=== PATIENT | male | born 1930 | race Caucasian/White ===

== ENCOUNTER 2017-07-05 11:22 | Inpatient (IN) | payer OTHER, MEDICARE ==
[~2017-07-05] VITALS: Ht 172.7 cm; Wt 64.4 kg
--- NOTE | ~2017-07-05 | P ---
[facility] [address] PROCEDURE REPORT Name: EVELIO LOCKE Room #: 438-P [facility] IN M.R.#: [id number] Admission: 07/05/17 Attend Phys: Edgardo Newell MD Discharge: Date of : 31 Report #: [id number] THIS REPORT FOR: //name// CC: Edgardo Hughese Regis DATE OF SERVICE: 07/08/2017 PROCEDURE PERFORMED: Upper endoscopy with biopsies. HISTORY OF PRESENT ILLNESS: The patient is an 86-year-old male with a history of abdominal pain, primarily mid epigastric and periumbilical as well as weight loss. A CT scan of the abdomen and pelvis was essentially normal. He does have a mildly elevated lipase, but CT shows normal appearing pancreas. No previous history of pancreatitis. Plan is for upper endoscopy. DESCRIPTION OF PROCEDURE: The risks and benefits of the procedure were explained to the patient, those risks including but not limited to bleeding, perforation and the risk of sedation. He understood these risks and gave informed consent. Sedation was given using propofol per anesthesia. Next, using a standard [employer] upper endoscope, the scope was placed in the patient's mouth and advanced under direct vision through the esophagus, stomach and into the second portion of the duodenum. The esophagus was normal throughout. The GE junction was normal. There was a diffuse moderate gastritis throughout the gastric body and antrum with erythema. Biopsies were obtained to rule out H. pylori. A gastric polyp, 4 mm in size, was also noted. This was removed with cold forceps. The duodenal bulb, first and second portion were all normal. Biopsies were also obtained to rule out the possibility of celiac disease. The scope was then withdrawn and the procedure terminated. The patient tolerated the procedure well. IMPRESSION: 1. Diffuse moderate gastritis. 2. Small gastric polyp. 3. Otherwise, normal upper endoscopy. RECOMMENDATIONS: 1. Await biopsy results. 2. Continue PPI therapy. 3. We will add Carafate at this time. 4. If continued pain and weight loss, would consider ultrasound with mesenteric Dopplers. [facility] [address] [place] [address] PROCEDURE REPORT Name: EVELIO LOCKE EMILIANA Room #: 438-P [facility] IN M.R.#: [id number] Admission: 07/05/17 Attend Phys: Edgardo Newell MD Discharge: Date of : 31 Report #: [id number] Thank you for allowing me to participate in his care. <ELECTRONICALLY SIGNED> By: Enrike Allen MD 07/08/17 1705 1243 1312 Enrike Allen MD /nt
--- NOTE | ~2017-07-05 | HC ---
[facility] [place] [address] CONSULTATION Name: EVELIO LOCKE Room #: 438-P [facility] IN ..#: [id number] Admission: 07/05/17 Attend Phys: Edgardo Newell MD Discharge: 07/09/17 Date of : 31 Report #: [id number] THIS REPORT FOR: //name// CC: Edgardo Stacy DATE OF SERVICE: 07/09/2017 HISTORY OF PRESENT ILLNESS: The patient is an 86-year-old white male with history of hypertension, hyperlipidemia, depression, dizziness, admitted with abdominal pain. He was diagnosed with diffuse moderate gastritis per EGD along with a small gastric polyp. He was also diagnosed with a urinary tract infection. He was noted to have cognitive issues with a negative CT of the head and has been diagnosed with metabolic encephalopathy. He was noted to have a slow progression of his cognitive deficits, thought to be worse in the hospital. He also has been seen by Psychiatry with history of depressive symptoms. His had approximately 2 years ago. He was diagnosed with major depressive disorder and was started on Remeron. He has had significant functional mobility and ADL deficits with cognitive concerns and definite decreased balance noted during therapies. We are seeing him in rehabilitation medicine consultation. PAST MEDICAL HISTORY: Includes hypertension, hyperlipidemia, cholecystectomy, 2 back surgeries, appendectomy. PAST SURGICAL HISTORY: As noted above. HABITS: No history of tobacco or alcohol abuse. MEDICATIONS: Please see the full medication listing. ALLERGIES: No known drug allergies. SOCIAL HISTORY: Lives in a house alone, did not utilize gait aids. There are 3 steps in. He has an older son that is involved as well as a sister of his and there is a friend from [place]. He has attentive neighbors as well. REVIEW OF SYSTEMS: Did not offer any current complaints of chest pain, shortness of breath or abdominal discomfort. No focal extremity pain complaints. PHYSICAL EXAMINATION: GENERAL: An 86-year-old white male in no obvious distress. VITAL SIGNS: Last recorded temperature 98.7, pulse 84, respirations 20, blood pressure 156/88. The patient is alert. He is pleasant. HEENT: Appeared to be benign. NEUROLOGIC: Cranial nerves are grossly intact. Facies are symmetric. He has [address] [address] CONSULTATION Name: EVELIO LOCKE Room #: 438-P [facility] IN .R.#: [id number] Admission: 07/05/17 Attend Phys: Edgardo Newell MD Discharge: 07/09/17 Date of : 31 Report #: [id number] functional range of motion of both upper extremities. Strength is a grade 4/5. DTRs are trace to 1. In his lower extremities, there is no focal calf swelling. Functional range of motion with strength grade 4/5 to 4-/5. DTRs are trace to 1. He was contact guard with sit to stand and ambulated 250 feet with a front-wheeled walker, but he has decreased safety and he had 1 loss of balance. He required increased time for gait, had some unsteadiness. He is mod assist for lower extremity dressing and tends to be impulsive. ASSESSMENT: An 86-year-old white male with the following problem list: 1. Metabolic encephalopathy. 2. Depressive disorder. 3. Abdominal pain, acute on chronic with noted diffuse moderate gastritis. 4. Urinary tract infection and has been on IV Rocephin. 5. Hypertension. 6. Deep venous thrombosis prophylaxis. PLAN: 1. The patient is a candidate for an acute in-hospital inpatient rehabilitation stay. From a preadmission screening perspective, please see the patient's above noted prior level of function. 2. Expected level of improvement would be for the patient to become modified independent at least at the walker level with the length of stay probably at least 7-10 days and likely longer. 3. Evaluation of the patient's risk for clinical complications. He does have the above noted medical comorbidities. 4. Condition that caused the need for rehabilitation would be the metabolic encephalopathy. 5. Treatments needed would include PT, OT and speech 1 hour per day each five days a week throughout the duration of the acute inpatient rehabilitation stay. 6. Anticipated discharge destination would be back to the home setting. 7. Anticipated post-discharge treatments would include home healthcare, most likely. 8. The patient meets diagnostic criteria for an acute in-hospital inpatient rehabilitation stay. He meets medical necessity criteria and we would have the automotive service consultant physicians continue to follow while he is on the rehab [place]. He meets the tolerance criteria for an acute in-hospital inpatient rehabilitation stay and has an appropriate discharge goal back to the home setting. By: 1413 1835 Av Avalos MD /
--- NOTE | ~2017-07-05 | HC ---
[facility] [place] [address] CONSULTATION Name: EVELIO LOCKE Room #: 438-P [facility] IN ..#: [id number] Admission: 07/05/17 Attend Phys: Edgardo Newell MD Discharge: Date of : 31 Report #: [id number] THIS REPORT FOR: //name// CC: Edgardo Hughese Regis DATE OF CONSULTATION: 07/06/2017. REQUESTING ATTENDING PHYSICIAN: Edgardo Newell M.D. REASON FOR CONSULTATION: Nioai-fi-lnfihhm abdominal pain and weight loss. HISTORY OF PRESENT ILLNESS: An 86-year-old male who is not a very good historian. Some of his memory of issues is not great. He reports having abdominal pain that is in the epigastrium to hypogastrium for approximately 3 months. He denies any evaluation of this until this hospitalization, although he has seen his primary care provider several times. Again, history is a bit unclear here. He does report a colonoscopy about 2 years ago and was told it was normal. He does not recall who did that. He notes that his pain seems to be better when he eats, although he also notes he has a poor appetite and with that he has lost some weight. He eats frozen dinners on a routine basis. PAST MEDICAL HISTORY: Pertinent for hypertension. CURRENT MEDICATIONS: As an outpatient included omeprazole, calcium, hydrochlorothiazide, lisinopril, Xalatan eyedrops, sertraline, levothyroxine, simvastatin, Lindsay and p.r.n. ibuprofen. PAST SURGICAL HISTORY: Includes tonsillectomy, cholecystectomy, 2 back surgeries, and appendectomy. FAMILY AND SOCIAL HISTORY: Noncontributory. MEDICATIONS: His current medications while in the hospital, atorvastatin, Rocephin, hydrochlorothiazide, hydrocodone, levothyroxine, lisinopril, morphine p.r.n., Norvasc, pantoprazole 40 mg p.o. daily, MiraLax p.r.n., sertraline, Zofran p.r.n. ALLERGIES: There are no known drug allergies. FAMILY AND SOCIAL HISTORY: Noncontributory. PHYSICAL EXAMINATION: VITAL SIGNS: Since admission, he has been afebrile. Most recent blood pressure is 149/70 with a pulse of 62. GENERAL: Well-developed, well-nourished elderly male. He is alert. He is oriented. [address] [address] CONSULTATION Name: EVELIO LOCKE Room #: 438-P [facility] IN [facility]#: [id number] Admission: 07/05/17 Attend Phys: Edgardo Newell MD Discharge: Date of : 31 Report #: [id number] HEENT: Nonicteric. SKIN: Normal. LUNGS: Clear. CARDIOVASCULAR: Regular rhythm. ABDOMEN: Soft. Bowel sounds are present, normoactive. No hepatosplenomegaly. There are no masses palpated. EXTREMITIES: There is no tenderness on my examination. REVIEWED LABORATORY DATA: Electrolytes are normal. AST is 38. Lipase was 440, ALT is 27. Alkaline phosphatase is normal. Total bilirubin is normal. Albumin is normal. White cell count is normal, hemoglobin is 11.9, platelet count is 219,000. The patient had a CT of the abdomen and pelvis done which basically was normal. There is no evidence of pancreatitis. IMPRESSION: Chronic abdominal pain that tends to improve with eating an 86-year-old male. I do not think clinically this is pancreatitis. CT does not reflect this either, perhaps he has some acid peptic disease. Recommend continue empiric proton pump inhibitor presently. PLAN: EGD on 08/08/[address] Allen if it is wish for him to be discharged. This could be done as an outpatient as well. <ELECTRONICALLY SIGNED> By: Brady Denton MD 07/06/17 0727 0616 0650 Brady Denton MD /nt
--- NOTE | ~2017-07-05 | S ---
[facility] [place] [address] SURGICAL PATH RPT PROCEDURE Name: ARIAN LOCKE Room #: 438-P ADM IN M.R.#: [id number] Admission: 07/05/17 Date of : 31 Discharge: Report #: [id number] Path Case #: [id number] PATHOLOGY REPORT COLLECTION DATE: 07/08/2017 RECEIVED DATE: 07/08/2017 SUBMITTING PHYS: Dr. Enrike Allen OTHER PHYS: Dr. Edgardo Stacy SPECIMEN(S) RECEIVED: A.Duodenum B.Gastritis C.Gastric polyp * * * * * * * * * * * * FINAL DIAGNOSIS: A. Small bowel, duodenum/rule out sprue, endoscopic biopsy: - No diagnostic abnormalities present. B. Gastric mucosa, gastritis rule out H. pylori, endoscopic biopsy: - Moderate reactive gastropathy associated with intestinal metaplasia as well as small bowel-type architecture. (please see comment) - Negative for atrophy or dysplasia. - Negative for Helicobacter pylori. C. Polyp, gastric polyp, endoscopic biopsy: - Compatible with an inflamed hyperplastic polyp. - Negative for dysplasia. COMMENT: B: Examination shows small bowel-type architecture with villi, as well as intestinal metaplasia in addition to fundic-type mucosa. These changes might represent intestinal metaplasia of the gastric mucosa or the mucosa at "pyloric outlet." Please correlate with endoscopic findings. Helicobacter pylori immunohistochemical stain performed on block B1-negative (IUV:mgr; 07/09/2017) PATHOLOGIST: Keena Ha M.D. REPORT ELECTRONICALLY SIGNED BY: Keena Ha M.D. DATE/TIME: 07/09/2017 15:12 * * * * * * * * * * * * GROSS PATHOLOGY: A. Received in formalin labeled "Arian Locke, duodenum r/o sprue," are four segments of hobbs soft tissue measuring 0.8 x 0.5 x [facility] [address] [place] [address] SURGICAL PATH RPT PROCEDURE Name: ARIAN LOCKE Room #: 438-[facility] IN ..#: [id number] Admission: 07/05/17 Date of : 31 Discharge: Report #: [id number] Path Case #: [id number] 0.3 cm in aggregate dimensions and ranging from 0.2 to 0.3 cm in maximum dimension. The specimen is submitted entirely in cassette A1. B. Received in formalin labeled "Arian Locke, gastritis,r/o H. pylori " are two segments of hobbs soft tissue measuring 0.5 x 0.2 x 0.3 cm in aggregate dimensions and ranging from 0.2 to 0.3 cm in maximum dimension. The specimen is submitted entirely in cassette B1. C. Received in formalin labeled "Arian Locke, gastric polyp," are two segments of hobbs soft tissue measuring 0.6 x 0.2 x 0.2 cm in aggregate dimensions and ranging from 0.2 to 0.4 cm in maximum dimension. The specimen is submitted entirely in cassette C1. (TSD; 07/08/2017) CLINICAL HISTORY: Pre-OP DX: Abdominal pain, weight loss Post-OP DX: Gastritis INITIAL CPT CODE(S): A; 76370 B; 22944, 33621 C; 23638 Professional services performed by [facility] at [facility] [address], [place] [address] Technical services performed by [facility] at [address] [place] [address], [address], [place] [address]. [facility] [place] [address] PHONE: [phone] DIRECTOR: Delfino Zhang M.D. * * * END OF REPORT * * *
--- NOTE | ~2017-07-05 | EKG ---
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
[~2017-07-05 11:22] MED LIST: ALLEGRA ALLERG180 MG PO; CALCIUM 500 +1 EAC5 PO; DAILY MULTIPLE1 EACH PO; HYDROCHLOROTHIA25 M2 PO; IBUPROFEN 200200 M1 PO; LEVOTHYROXINE 0.1 MG PO; NORVASC5 MG PO; PRILOSEC 20 MG20 MG PO; XALATAN2.5 ML OPHTHALMIC; ZESTRIL40 MG PO; ZOCOR20 MG PO; ZOLOFT 50 MG TA50 M1 PO; ZOLOFT50 MG PO
[2017-07-05 11:41] VITALS: BP 178/89
[2017-07-05 12:12] LABS: ABSOLUTE NEUTROPHILS 5.8 thou/uL (1.4-8.2); BASOPHILS 0.3 % (0.0-2.0); EOSINOPHILS 0.1 % (0.0-3.0); HEMATOCRIT 37.1 % (42.0-52.0); HEMOGLOBIN 13.1 gm/dL (14.0-18.0); LYMPHOCYTES 13.2 % (24.0-44.0); MCH 31.5 pg (26.0-34.0); MCHC 35.3 g/dL (28.0-37.0); MCV 89.2 fL (80.0-100.0); MONOCYTES 8.1 % (1.0-8.0); PLATELET COUNT 245 thou/uL (150-400); POLYS 78.3 % (36.0-66.0); RBC 4.16 mil/uL (4.50-6.00); RDW 13.2 % (10.5-14.5); WBC 7.4 thou/uL (4.0-11.0)
[2017-07-05 12:14] LABS: MANUAL DIFF NO
[2017-07-05 12:14] LABS: URINE BILIRUBIN NEGATIVE (Negative); URINE BLOOD NEGATIVE (Negative); URINE COLOR YELLOW; URINE GLUCOSE-RANDOM* NEGATIVE (Negative); URINE KETONES NEGATIVE (Negative); URINE LEUKOCYTES-REFLEX TRACE (Negative); URINE PROTEIN (DIPSTICK) NEGATIVE (Negative); URINE SPECIFIC GRAVITY 1.015 (1.003-1.035); URINE UROBILINOGEN 0.2 E.U./dl (0.2-1.0)
[2017-07-05 12:15] LABS: ANION GAP 7 mmol/L (7-16); BUN 22 mg/dL (7-18); CALCIUM 9.3 mg/dL (8.5-10.1); CHLORIDE 102 mmol/L (98-107); CO2 28 mmol/L (21-32); CREATININE 1.3 mg/dL (0.7-1.3); GLUCOSE 130 mg/dL (74-106); POTASSIUM 4.1 mmol/L (3.5-5.1); SODIUM 137 mmol/L (136-145)
[2017-07-05 12:24] LABS: MAGNESIUM 1.8 mg/dL (1.8-2.4); TROPONIN-I < 0.04 ng/mL (<0.04-0.07)
[2017-07-05 13:52] VITALS: BP 183/87
[2017-07-05 14:27] VITALS: BP 175/82
[2017-07-05 14:35] VITALS: BP 182/91
[2017-07-05 19:48] VITALS: BP 176/73
[2017-07-06 03:11] VITALS: BP 149/70
[2017-07-06 03:46] LABS: HEMOGLOBIN 11.9 gm/dL (14.0-18.0); MCH 31.2 pg (26.0-34.0); RBC 3.81 mil/uL (4.50-6.00); WBC 7.3 thou/uL (4.0-11.0)
[2017-07-06 03:56] LABS: CALCIUM 8.8 mg/dL (8.5-10.1); CREATININE 1.2 mg/dL (0.7-1.3); POTASSIUM 3.8 mmol/L (3.5-5.1)
[2017-07-06 08:53] VITALS: BP 141/56
[2017-07-06 15:37] VITALS: BP 158/76
[2017-07-06 19:40] VITALS: BP 171/79
[2017-07-07 03:35] VITALS: BP 149/65
[2017-07-07 04:56] LABS: HEMOGLOBIN 12.1 gm/dL (14.0-18.0); MCH 31.1 pg (26.0-34.0); MCHC 34.7 g/dL (28.0-37.0); MCV 89.6 fL (80.0-100.0); RBC 3.9 mil/uL (4.50-6.00); RDW 13.1 % (10.5-14.5); WBC 8.4 thou/uL (4.0-11.0)
[2017-07-07 05:14] LABS: CALCIUM 8.9 mg/dL (8.5-10.1); CREATININE 1.2 mg/dL (0.7-1.3); POTASSIUM 3.7 mmol/L (3.5-5.1)
[2017-07-07 08:26] VITALS: BP 144/61
[2017-07-07 16:23] VITALS: BP 164/77
[2017-07-07 19:40] VITALS: BP 131/68
[2017-07-08 04:50] VITALS: BP 160/70
[2017-07-08 08:00] VITALS: BP 175/84
[2017-07-08 13:48] VITALS: BP 130/74
[2017-07-08 16:00] VITALS: BP 185/99
[2017-07-08 20:14] VITALS: BP 168/96
[2017-07-09 04:25] VITALS: BP 156/88
[2017-07-09 05:35] LABS: HEMATOCRIT 35.7 % (42.0-52.0); HEMOGLOBIN 12.2 gm/dL (14.0-18.0); MCH 30.8 pg (26.0-34.0); MCHC 34.2 g/dL (28.0-37.0); RBC 3.96 mil/uL (4.50-6.00); RDW 13.3 % (10.5-14.5); WBC 7.4 thou/uL (4.0-11.0)
[2017-07-09 05:45] LABS: CALCIUM 9.1 mg/dL (8.5-10.1); CREATININE 1.5 mg/dL (0.7-1.3); POTASSIUM 3.8 mmol/L (3.5-5.1)
[2017-07-09] MEDS ORDERED: CARAFATE 1 GM TA1 G1 PO (15:57)
[2017-07-09] MEDS ORDERED: REMERON15 MG PO (15:57)
[2017-07-09] MEDS ORDERED: MIRALAX17 GM PO (15:57)
[2017-07-09 16:00] VITALS: BP 118/57
== END 2017-07-09 18:15 | DRG 689 ==
LOC: ER 11:22 → 4S 13:35 → EROBS 13:35 → 4S 14:23
PROVIDERS: Emergency Medicine; Hospitalist
PROC: 0DB68ZX Excision of Stomach, Via Natural or Artificial Opening Endoscopic, Diagnostic (ICD-10-PCS; principal; 2017-07-08)
PROC: 0DB98ZX Excision of Duodenum, Via Natural or Artificial Opening Endoscopic, Diagnostic (ICD-10-PCS; principal; 2017-07-08)
DX: N39.0 Urinary tract infection, site not specified (principal); G93.41 Metabolic encephalopathy; K85.90 Acute pancreatitis without necrosis or infection, unspecified; I10 Essential (primary) hypertension; E78.5 Hyperlipidemia, unspecified; F32.9 Major depressive disorder, single episode, unspecified; N28.9 Disorder of kidney and ureter, unspecified; Z60.2 Problems related to living alone; K29.70 Gastritis, unspecified, without bleeding; K31.7 Polyp of stomach and duodenum; K59.00 Constipation, unspecified; Z90.49 Acquired absence of other specified parts of digestive tract; Z79.899 Other long term (current) drug therapy
CPT/HCPCS: 10100; 62110; 62900; 70005

== ENCOUNTER 2017-07-09 15:30 | Inpatient (IN) | payer OTHER, MEDICARE ==
[~2017-07-09] VITALS: Ht 172.7 cm; Wt 64.9 kg
--- NOTE | ~2017-07-09 | H ---
[facility] [place] [address] HISTORY AND PHYSICAL Name: EVELIO LOCKE Room #: 503-P ADM IN M.R.#: [id number] Admission: 07/09/17 Attend Phys: Av Avalos MD Discharge: Date of : 31 Report #: [id number] THIS REPORT FOR: //name// CC: Av Stacy DATE OF SERVICE: 07/09/2017 HISTORY AND PHYSICAL/POST-ADMISSION PHYSICIAN EVALUATION HISTORY OF PRESENT ILLNESS: The patient is an 86-year-old white male with a prior history of hypertension, hyperlipidemia, depression, dizziness who is originally admitted to [facility] with abdominal pain. He was diagnosed with diffuse moderate gastritis per EGD along with a small gastric polyp. He was also diagnosed with a urinary tract infection. He was noted to have cognitive issues with a negative CT of the head and was diagnosed with a metabolic encephalopathy. He was noted to have a slow progression of his cognitive deficits, thought to be worse in the hospital. He was seen by Psychiatry with his history of depressive symptoms. His had approximately 2 years ago. He was diagnosed with major depressive disorder and was started on Remeron. He was noted to have significant functional mobility and ADL deficits and cognitive concerns along with decreased balance. He was admitted for acute in-hospital inpatient rehabilitation. PAST MEDICAL HISTORY: Includes hypertension, hyperlipidemia, cholecystectomy, 2 back surgeries, appendectomy. PAST SURGICAL HISTORY: As noted above. HABITS: No history of tobacco or alcohol abuse. MEDICATIONS: Please see the full medication listing as noted. These medications were individually reconciled upon admission to the acute inpatient rehabilitation call[place]. They include supplements [id number], etc. ALLERGIES: No known drug allergies. SOCIAL HISTORY: Lives in a house alone, did not utilize gait aids. There are 3 steps in. He has an older son that is involved as well as a sister of his and there is a friend from [place], [place]. He has attentive neighbors as well. REVIEW OF SYSTEMS: No current complaints of chest pain, shortness of breath, abdominal discomfort. No focal extremity pain complaints. PHYSICAL EXAMINATION: [facility] [address] [place] [address] HISTORY AND PHYSICAL Name: EVELIO LOCKE Room #: 503-P [facility] IN M.R.#: [id number] Admission: 07/09/17 Attend Phys: Av Avalos MD Discharge: Date of : 31 Report #: [id number] GENERAL: An 86-year-old white male in no obvious distress. The patient is sleepy, but will arouse. VITAL SIGNS: Last recorded temperature is 98.6, pulse 60, respirations 20, blood pressure 162/86. HEENT: Appeared to be benign. CHEST: Sounded clear to auscultation. CARDIOVASCULAR: Regular rate and rhythm. ABDOMEN: Bowel sounds positive, nontender. GENITOURINARY AND RECTAL: Deferred. EXTREMITIES: He has functional range of motion of both upper extremities with strength grade 4/5. DTRs are trace to 1. In his lower extremities, there is no focal calf swelling. Functional range of motion with strength grade 4 to 4-/5. DTRs are trace to 1. He has been contact guard with sit to stand and has some decreased balance, decreased safety, some unsteadiness. He is needing assistance for extremity dressing. ASSESSMENT: An 86-year-old white male with the following problem list: 1. Metabolic encephalopathy. 2. Depressive disorder. 3. Abdominal pain, acute on chronic, with noted moderate diffuse gastritis. 4. Urinary tract infection for which he has been on IV Rocephin. 5. Hypertension. 6. Deep venous thrombosis prophylaxis. PLAN: The patient is admitted for acute in-hospital inpatient rehabilitation. From a post-admission physician evaluation perspective, there are no relevant changes since the preadmission screening. Please see the above review of prior and current medical and functional conditions and comorbidities. Please see the patient's previous and current functional status. As far as risk of complications, he does have the above-noted comorbidities. Initial plan of care involves the interdisciplinary acute inpatient rehabilitation program with the goal of maximizing his functional independence, so that he can hopefully return back to his prior living situation. Prognosis is reasonably good with estimated length of stay of at least 7-10 days and potentially longer. Potential barriers would include his multiple medical comorbidities and decreased functional status. By: 0930 0951 Av Avalos MD /
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
--- NOTE | ~2017-07-09 | HC ---
[facility] [place] [address] CONSULTATION Name: EVELIO LOCKE Room #: 503-P ADM IN M.R.#: [id number] Admission: 07/09/17 Attend Phys: Av Avalos MD Discharge: Date of : 31 Report #: [id number] THIS REPORT FOR: //name// CC: Av Stacy DATE OF SERVICE: 07/12/2017 SUBJECTIVE: The patient is seen back today in followup. He is in no distress. Last recorded temperature 98.6, pulse 74, respirations 18, blood pressure 154/73. The patient has been seen by Psychiatry, noted to have major depressive disorder with plans to continue Remeron 15 mg at bedtime. Gastroenterology is involved as he does have some residual abdominal pain and he has evidence of gastritis. Transfers are contact guard with gait, contact guard 100 feet with a standard cane. In occupational therapy, lower body dressing is min assist. He has [id number] comprehensive deficits. ASSESSMENT: 1. Metabolic encephalopathy. 2. Depressive disorder. 3. Abdominal pain, acute on chronic with noted moderate diffuse gastritis. 4. Urinary tract infection. 5. Hypertension. 6. Deep venous thrombosis prophylaxis. PLAN: The overall plan of care is based on the preadmission screen, post-admission physician evaluation and information garnered from therapy assessments. 1. Estimated length of stay is at least 7-10 days or probably longer. 2. Medical prognosis is reasonably good. 3. Anticipated interventions includes the interdisciplinary acute inpatient rehabilitation program with PT and OT. Speech therapy is involved. Rehab nursing is assisting regarding medication management, skin care prophylaxis, bowel and bladder issues and nursing education. We will have the interdisciplinary acute rehab team assisting. 4. Anticipated functional outcomes would be for the patient to become modified independent with transfers, mobility and ADLs and to improve as far as cognition, so that he can return back to the home setting. 5. Discharge destination is back home alone. 6. Expected therapy by discipline includes PT and OT and speech 1 hour per day each for five days a week throughout the duration of the acute inpatient rehabilitation stay. By: [id number] Av Avalos MD /
[2017-07-09] MEDS ORDERED: REMERON15 MG PO (15:57)
[2017-07-09] MEDS ORDERED: CARAFATE 1 GM TA1 G1 PO (15:57)
[2017-07-09] MEDS ORDERED: MIRALAX17 GM PO (15:57)
[2017-07-09 19:05] VITALS: BP 163/65
[2017-07-10 05:35] VITALS: BP 162/86
[2017-07-10 10:38] LABS: BASOPHILS 0.5 % (0.0-2.0); EOSINOPHILS 0.4 % (0.0-3.0); HEMATOCRIT 39.2 % (42.0-52.0); HEMOGLOBIN 13.3 gm/dL (14.0-18.0); LYMPHOCYTES 18.9 % (24.0-44.0); MCH 30.6 pg (26.0-34.0); MCHC 33.8 g/dL (28.0-37.0); MCV 90.5 fL (80.0-100.0); MONOCYTES 11.6 % (1.0-8.0); PLATELET COUNT 243 thou/uL (150-400); POLYS 68.6 % (36.0-66.0); RBC 4.34 mil/uL (4.50-6.00); RDW 13.1 % (10.5-14.5); WBC 7.3 thou/uL (4.0-11.0)
[2017-07-10 10:41] LABS: MANUAL DIFF NO
[2017-07-10 10:47] LABS: CALCIUM 9.1 mg/dL (8.5-10.1); CREATININE 1.3 mg/dL (0.7-1.3); POTASSIUM 3.7 mmol/L (3.5-5.1)
[2017-07-10 16:38] VITALS: BP 132/70
[2017-07-11 03:30] VITALS: BP 141/76
[2017-07-11 05:52] LABS: ABSOLUTE NEUTROPHILS 3.9 thou/uL (1.4-8.2); BASOPHILS 0.6 % (0.0-2.0); EOSINOPHILS 1.2 % (0.0-3.0); HEMATOCRIT 31.7 % (42.0-52.0); LYMPHOCYTES 29.2 % (24.0-44.0); MCH 31.7 pg (26.0-34.0); MCHC 35.5 g/dL (28.0-37.0); MCV 89.2 fL (80.0-100.0); MONOCYTES 10.2 % (1.0-8.0); PLATELET COUNT 220 thou/uL (150-400); POLYS 58.8 % (36.0-66.0); RBC 3.55 mil/uL (4.50-6.00); RDW 13.2 % (10.5-14.5); WBC 6.7 thou/uL (4.0-11.0)
[2017-07-11 05:59] LABS: HEMOGLOBIN 11.2 gm/dL (14.0-18.0); MANUAL DIFF NO
[2017-07-11 06:08] LABS: CALCIUM 8.5 mg/dL (8.5-10.1); CREATININE 1.1 mg/dL (0.7-1.3); MAGNESIUM 1.8 mg/dL (1.8-2.4); POTASSIUM 3.5 mmol/L (3.5-5.1)
[2017-07-11 07:48] VITALS: BP 184/81
[2017-07-11 16:00] VITALS: BP 134/64
[2017-07-12 05:16] VITALS: BP 154/73
[2017-07-12 16:54] VITALS: BP 178/72
[2017-07-13 06:10] VITALS: BP 179/91
[2017-07-13 15:21] VITALS: BP 135/60
[2017-07-13 15:38] LABS: HEMATOCRIT 36.3 % (42.0-52.0); HEMOGLOBIN 12.5 gm/dL (14.0-18.0); MCH 30.8 pg (26.0-34.0); MCHC 34.5 g/dL (28.0-37.0); MCV 89.1 fL (80.0-100.0); RBC 4.07 mil/uL (4.50-6.00); RDW 13.4 % (10.5-14.5); WBC 5.9 thou/uL (4.0-11.0)
[2017-07-13 15:49] LABS: CALCIUM 9.4 mg/dL (8.5-10.1); CREATININE 1.4 mg/dL (0.7-1.3); POTASSIUM 3.8 mmol/L (3.5-5.1)
[2017-07-14 02:59] VITALS: BP 157/70
[2017-07-14 16:40] VITALS: BP 146/69
[2017-07-14 23:00] VITALS: BP 180/89
[2017-07-15 09:20] VITALS: BP 164/69
[2017-07-15 15:17] VITALS: BP 154/72
[2017-07-15 20:35] VITALS: BP 122/61
[2017-07-16 06:12] LABS: ABSOLUTE NEUTROPHILS 5.5 thou/uL (1.4-8.2); BASOPHILS 0.5 % (0.0-2.0); EOSINOPHILS 0.5 % (0.0-3.0); HEMATOCRIT 33.4 % (42.0-52.0); HEMOGLOBIN 11.9 gm/dL (14.0-18.0); LYMPHOCYTES 14.1 % (24.0-44.0); MCH 31.6 pg (26.0-34.0); MCHC 35.5 g/dL (28.0-37.0); MCV 88.8 fL (80.0-100.0); MONOCYTES 8.9 % (1.0-8.0); PLATELET COUNT 208 thou/uL (150-400); RBC 3.76 mil/uL (4.50-6.00); RDW 13.3 % (10.5-14.5); WBC 7.3 thou/uL (4.0-11.0)
[2017-07-16 06:14] LABS: MANUAL DIFF NO
[2017-07-16 06:22] LABS: CREATININE 1.4 mg/dL (0.7-1.3); MAGNESIUM 1.8 mg/dL (1.8-2.4); POTASSIUM 3.9 mmol/L (3.5-5.1)
[2017-07-16 06:24] LABS: CHOLESTEROL 151 mg/dL (<200); HDL CHOLESTEROL 56 mg/dL (>40); LDL CHOLESTEROL 79 mg/dL (<100); TC:HDL 2.7 Ratio (Not establshd); TRIGLYCERIDE 81 mg/dL (<150); VLDL 16 mg/dL (<40)
[2017-07-16 06:49] LABS: FOLIC ACID 17.8 ng/mL (8.6-58.9)
[2017-07-16 07:59] VITALS: BP 135/69
[2017-07-16 19:10] VITALS: BP 141/67
[2017-07-17 09:00] VITALS: BP 132/74
[2017-07-17 21:00] VITALS: BP 165/73
[2017-07-18 07:03] LABS: CALCIUM 9.6 mg/dL (8.5-10.1); CREATININE 1.1 mg/dL (0.7-1.3); MAGNESIUM 1.9 mg/dL (1.8-2.4); POTASSIUM 3.9 mmol/L (3.5-5.1)
[2017-07-18 09:00] VITALS: BP 116/57
[2017-07-18 21:03] VITALS: BP 139/64
[2017-07-19 08:45] VITALS: BP 97/44
[2017-07-19 19:47] VITALS: BP 123/59
[2017-07-20 19:37] VITALS: BP 128/67
[2017-07-21 06:03] LABS: HEMATOCRIT 31.7 % (42.0-52.0); MCH 30.9 pg (26.0-34.0); MCHC 34.7 g/dL (28.0-37.0); MCV 88.9 fL (80.0-100.0); RBC 3.57 mil/uL (4.50-6.00); RDW 13.4 % (10.5-14.5); WBC 7.5 thou/uL (4.0-11.0)
[2017-07-21 06:16] LABS: CALCIUM 8.9 mg/dL (8.5-10.1); CREATININE 1.2 mg/dL (0.7-1.3); POTASSIUM 4.1 mmol/L (3.5-5.1)
[2017-07-22 04:38] VITALS: BP 137/61
[2017-07-22 08:10] VITALS: BP 138/63
[2017-07-22 13:03] LABS: URINE BILIRUBIN NEGATIVE (Negative); URINE BLOOD 2+ (Negative); URINE COLOR YELLOW; URINE GLUCOSE-RANDOM* NEGATIVE (Negative); URINE KETONES NEGATIVE (Negative); URINE PROTEIN (DIPSTICK) TRACE (Negative); URINE UROBILINOGEN 0.2 E.U./dl (0.2-1.0)
[2017-07-22 13:04] LABS: URINE LEUKOCYTES-REFLEX TRACE (Negative)
[2017-07-22 14:24] LABS: CASTS None Seen /LPF (None Seen); SQUAMOUS 0-3 Few /LPF (0-3); URINE RBC 3-10 Few /HPF (0-2); URINE WBC-REFLEX 6-15 Few /HPF (0-5)
[2017-07-22 14:25] LABS: AMORPHOUS PHOSPHATES Few /LPF (None Seen)
[2017-07-22 19:42] VITALS: BP 137/60
[2017-07-23 08:30] VITALS: BP 111/43
[2017-07-23 09:07] VITALS: BP 111/43
== END 2017-07-23 14:31 | DRG 71 ==
PROVIDERS: Hospitalist; Internal Medicine; Nurse Practitioner; Psychiatry & Neurology Neurology
DX: G93.41 Metabolic encephalopathy (principal); N39.0 Urinary tract infection, site not specified; N17.9 Acute kidney failure, unspecified; G20 Parkinson's disease; F01.50 Vascular dementia, unspecified severity, without behavioral disturbance, psychotic disturbance, mood disturbance, and anxiety; F32.9 Major depressive disorder, single episode, unspecified; I10 Essential (primary) hypertension; K29.70 Gastritis, unspecified, without bleeding; E78.5 Hyperlipidemia, unspecified; Z60.2 Problems related to living alone; E53.8 Deficiency of other specified B group vitamins; G47.00 Insomnia, unspecified; R26.9 Unspecified abnormalities of gait and mobility; Z90.49 Acquired absence of other specified parts of digestive tract
CPT/HCPCS: 10112

== ENCOUNTER 2018-09-15 10:12 | Emergency (ER) | payer OTHER, MEDICARE ==
[~2018-09-15] VITALS: Ht 172.7 cm; Wt 79.4 kg
--- NOTE | ~2018-09-15 | EKG ---
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 : 1930 Requested By: Bereket Reed Order Number: [id number] MD: Allen Cherry Measurements Intervals [place] Rate: 68 P: 58 AL: 162 QRS: -10 QRSD: 99 T: 54 QT: 455 QTc: 484 Interpretive Statements Sinus rhythm Normal tracing Borderline prolonged QT interval Compared to ECG 04/19/2018 11:55:27 No significant changes Electronically Signed On 09-15-2018 17:08:21 CDT by Allen Cherry [email or web address] <ELECTRONICALLY SIGNED> By: Allen Cherry MD, [facility] 09/15/18 1708 1034 1034 Allen Cherry MD, FACC /EPI
[~2018-09-15 10:12] MED LIST changes: +ANTIVERT25 MG PO; +CARAFATE 1 GM TA1 G1 PO; +MIRALAX17 GM PO; +REMERON15 MG PO
[2018-09-15] MEDS ORDERED: LEXAPRO 10 MG T10 M2 PO (10:23)
[2018-09-15] MEDS ORDERED: B12INJ IM (10:24)
[2018-09-15] MEDS ORDERED: REMERON15 MG PO (10:24)
[2018-09-15 10:53] LABS: ABSOLUTE NEUTROPHILS 5.5 thou/uL (1.4-8.2); BASOPHILS 0.8 % (0.0-2.0); EOSINOPHILS 0.6 % (0.0-3.0); HEMATOCRIT 33.5 % (42.0-52.0); HEMOGLOBIN 11.7 gm/dL (14.0-18.0); LYMPHOCYTES 15.9 % (24.0-44.0); MCH 30.9 pg (26.0-34.0); MCHC 34.9 g/dL (28.0-37.0); MCV 88.3 fL (80.0-100.0); MONOCYTES 9.5 % (1.0-8.0); PLATELET COUNT 249 thou/uL (150-400); POLYS 73.2 % (36.0-66.0); RBC 3.79 mil/uL (4.50-6.00); RDW 13.2 % (10.5-14.5); WBC 7.6 thou/uL (4.0-11.0)
[2018-09-15 10:59] LABS: CALCIUM 9.4 mg/dL (8.5-10.1); CREATININE 1.4 mg/dL (0.7-1.3)
[2018-09-15 11:33] LABS: URINE BILIRUBIN NEGATIVE (Negative); URINE BLOOD TRACE (Negative); URINE CLARITY CLEAR; URINE COLOR YELLOW; URINE GLUCOSE-RANDOM* NEGATIVE (Negative); URINE KETONES 1+ (Negative); URINE LEUKOCYTES-REFLEX NEGATIVE (Negative); URINE NITRITE-REFLEX NEGATIVE (Negative); URINE PROTEIN (DIPSTICK) NEGATIVE (Negative)
[2018-09-15] MEDS ORDERED: TOBRAMYCIN SULFA5 M1 OPHTHALMIC (13:04)
[2018-09-15] MEDS ORDERED: ZITHROMAX250 MG PO (13:04)
== END 2018-09-15 13:40 | disposition home or self-care (01) ==
LOC: ER 10:12
PROVIDERS: Emergency Medicine
DX: S00.83XA Contusion of other part of head, initial encounter (principal); J01.90 Acute sinusitis, unspecified; H10.33 Unspecified acute conjunctivitis, bilateral; R42 Dizziness and giddiness; E78.5 Hyperlipidemia, unspecified; I10 Essential (primary) hypertension; G93.41 Metabolic encephalopathy; W06.XXXA Fall from bed, initial encounter; Y93.89 Activity, other specified; Y92.89 Other specified places as the place of occurrence of the external cause; Y99.8 Other external cause status

== ENCOUNTER 2018-11-22 18:28 | Emergency (ER) | payer OTHER, MEDICARE ==
[~2018-11-22] VITALS: Ht 172.7 cm; Wt 72.6 kg
[~2018-11-22 18:28] MED LIST changes: +B12INJ IM; +LEXAPRO 10 MG T10 M2 PO; +TOBRAMYCIN SULFA5 M1 OPHTHALMIC; +ZITHROMAX250 MG PO
[2018-11-22 18:57] LABS: ABSOLUTE NEUTROPHILS 3.3 thou/uL (1.4-8.2); BASOPHILS 0.6 % (0.0-2.0); EOSINOPHILS 0.7 % (0.0-3.0); HEMOGLOBIN 11.2 gm/dL (14.0-18.0); LYMPHOCYTES 32.9 % (24.0-44.0); MCH 30.3 pg (26.0-34.0); MCHC 33.8 g/dL (28.0-37.0); MCV 89.6 fL (80.0-100.0); MONOCYTES 9.4 % (1.0-8.0); PLATELET COUNT 198 thou/uL (150-400); POLYS 56.4 % (36.0-66.0); RBC 3.69 mil/uL (4.50-6.00); WBC 5.9 thou/uL (4.0-11.0)
[2018-11-22 19:01] LABS: ANION GAP 5 mmol/L (7-16); BUN 27 mg/dL (7-18); CALCIUM 8.8 mg/dL (8.5-10.1); CHLORIDE 106 mmol/L (98-107); CO2 28 mmol/L (21-32); CREATININE 1.6 mg/dL (0.7-1.3); GLUCOSE 150 mg/dL (74-106); POTASSIUM 4.6 mmol/L (3.5-5.1); SODIUM 139 mmol/L (136-145)
[2018-11-22 19:09] LABS: ALBUMIN 3.5 g/dL (3.4-5.0); SGOT 33 U/L (15-37); SGPT 28 U/L (30-65); TOTAL BILIRUBIN 0.3 mg/dL (<0.1-1.0); TOTAL PROTEIN 6.6 g/dL (6.4-8.2); TROPONIN-I <0.06 ng/mL (<0.06)
[2018-11-22 20:26] VITALS: BP 168/77
--- NOTE | 2018-11-23 21:59 | EKG ---
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
== END 2018-11-22 20:42 ==
LOC: ER 18:28
PROVIDERS: Emergency Medicine
DX: F41.9 Anxiety disorder, unspecified (principal); R06.02 Shortness of breath; E78.5 Hyperlipidemia, unspecified; I10 Essential (primary) hypertension; F32.9 Major depressive disorder, single episode, unspecified; Z90.49 Acquired absence of other specified parts of digestive tract; Z90.89 Acquired absence of other organs

== ENCOUNTER 2019-03-22 10:49 | Emergency (ER) | payer OTHER, MEDICARE ==
[~2019-03-22] VITALS: Ht 175.3 cm; Wt 75.8 kg
[2019-03-22 11:46] LABS: ABSOLUTE NEUTROPHILS 3.7 thou/uL (1.4-8.2); BASOPHILS 0.2 % (0.0-2.0); EOSINOPHILS 0.6 % (0.0-3.0); HEMATOCRIT 37.1 % (42.0-52.0); HEMOGLOBIN 12.3 gm/dL (14.0-18.0); MCHC 33.3 g/dL (28.0-37.0); MCV 90.2 fL (80.0-100.0); MONOCYTES 8.7 % (1.0-8.0); PLATELET COUNT 185 thou/uL (150-400); POLYS 61.5 % (36.0-66.0); RBC 4.11 mil/uL (4.50-6.00); RDW 13.9 % (10.5-14.5)
[2019-03-22 11:51] LABS: ANION GAP 11 mmol/L (7-16); BUN 29 mg/dL (7-18); CHLORIDE 107 mmol/L (98-107); CO2 26 mmol/L (21-32); CREATININE 1.4 mg/dL (0.7-1.3); GLUCOSE 106 mg/dL (74-106); POTASSIUM 4.4 mmol/L (3.5-5.1); SODIUM 144 mmol/L (136-145)
[2019-03-22 12:01] LABS: ALBUMIN 3.7 g/dL (3.4-5.0); MAGNESIUM 1.9 mg/dL (1.8-2.4); SGOT 34 U/L (15-37); SGPT 24 U/L (30-65); TOTAL BILIRUBIN 0.5 mg/dL (<0.1-1.0); TOTAL PROTEIN 6.5 g/dL (6.4-8.2); TROPONIN-I <0.06 ng/mL (<0.06)
[2019-03-22] MEDS ORDERED: ANTIVERT25 MG PO (12:28)
[2019-03-22 15:06] VITALS: BP 149/72
--- NOTE | 2019-03-23 08:52 | EKG ---
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 : 1930 Requested By: Blu Owens Order Number: [id number] MD: Allen Cherry Measurements Intervals [place] Rate: 66 P: 46 [place]: 165 QRS: -16 QRSD: 104 T: 55 QT: 442 QTc: 464 Interpretive Statements Sinus rhythm Borderline left axis deviation Compared to ECG 11/22/2018 19:00:13 No significant change was found Electronically Signed On 03-23-2019 8:52:33 CDT by Allen Cherry [email or web address] ��������������������������������������������� <ELECTRONICALLY SIGNED> ���������������������������������������� By: Allen Cherry MD, [facility] ��������������������������������������������� 03/23/19 0852 1056 55 Allen Cherry MD, FACC /EPI
== END 2019-03-22 15:18 | disposition home or self-care (01) ==
LOC: ER 10:49
PROVIDERS: Emergency Medicine
DX: R42 Dizziness and giddiness (principal); F41.9 Anxiety disorder, unspecified; I12.9 Hypertensive chronic kidney disease with stage 1 through stage 4 chronic kidney disease, or unspecified chronic kidney disease; N18.9 Chronic kidney disease, unspecified; E78.5 Hyperlipidemia, unspecified; Z90.49 Acquired absence of other specified parts of digestive tract; Z98.890 Other specified postprocedural states; Z87.19 Personal history of other diseases of the digestive system; Z79.899 Other long term (current) drug therapy

== ENCOUNTER 2019-07-07 21:14 | Emergency (ER) | payer OTHER, MEDICARE ==
[~2019-07-07] VITALS: Ht 172.7 cm; Wt 63.5 kg
--- NOTE | ~2019-07-07 | EMS ---
[address] [address] EMS Patient Care Report Name: EVELIO LOCKE Room #: REG YANELIS Yoo#: [id number] Admission: 07/07/19 Attend Phys: Discharge: Date of : 31 Report #: [id number] THIS REPORT FOR: //name// Report Transmitted: 07/07/2019 21:08 EMS Care Summary [place], [place]/[facility] Incident [id number] @ 07/07/2019 20:42 Incident Location [address] [facility] [address] Patient EVELIO LOCKE Male, 88 Years 1930 Patient Address [id number] [place] [address] [address] [place] [id number] Patient History Hypertension,Depression,Hypothyroidism, Patient Allergies No known allergies, Patient Medications Mirtazapine, Levothyroxine, Cyanocobalamin Co57, Lisinopril, Simvastatin, Amlodipine, ASA, Omeprazole, Chief Complaint skin tear to forehead Disposition Transported No Lights/[place] Reason Falls Transported To [facility] Narrative Called to the scene for a fall. Upon arrival, pt was lying in bed. SD staff reported he fell out of bed and now has a large skin tear to his forehead. [facility] [address] [place] [address] EMS Patient Care Report Name: EVELIO LOCKE Room #: REG Hue.#: [id number] Admission: 07/07/19 Attend Phys: Discharge: Date of : 31 Report #: [id number] They also reported he was leaning to his right tonight when walking and sitting. No definitive signs of a stroke, no blood thinners reported. Pt moved to the EMS cot and loaded into the ambulance w/o incident. Vitals obtained. 18g IV. D-stick obtained. Vitals repeated. En route: no changes. RR to [facility] ER. Arrived: pt taken to ER #11 and moved to their bed w/o incident. Pt care & report to ER staff. Initial Vitals @20:56P: 76,R: 14,BP: 146/68,Pain: 0/10,GCS: 14,SpO2: 92,Revised Trauma: 12, @21:00P: 74,R: 16,BP: 144/66,Pain: 0/10,GCS: 14,Glucose: 153,CO: 5,SpO2: 92,Revised Trauma: 12, Assessments @20:49MENTAL:SKIN:HEENT:Head/Face: ABR,LUNG SOUNDS:ABDOMEN:PELVIS//GI:EXTREMITIES:PULSE:NEURO: Impression Injury of Face Procedures @20:58Saline Lock 8cc (18 ga) Site: Forearm-LeftResponse: UnchangedSucceeded@20:49ALS AssessmentResponse: UnchangedSucceeded@20:53StretcherResponse: Unchanged Timeline 20:39,Call Received 20:39,Dispatch Notified 20:42,Dispatched 20:43,En Route 20:47,On Scene 20:49,At Patient 20:49,ALS Assessment,Response: UnchangedSucceeded, 20:53,Stretcher,Response: Unchanged 20:56,BP: 146/68 M,PULSE: 76,RR: 14 R,SPO2: 92 Ox,ETCO2: ,BG: ,PAIN: 0,GCS: 14, 20:58,Saline Lock 8cc 18 ga Site: Forearm-Left,Response: UnchangedSucceeded, 21:00,BP: 144/66 M,PULSE: 74,RR: 16 R,SPO2: 92 Ox,ETCO2: ,B,PAIN: 0,GCS: 14, 21:02,Depart Scene 21:08,At Destination 21:21,Call Closed Disclaimer v1.1 Copyright 2019 [employer] This EMS Care Summary contains data elements from the applicable legal record (which may be displayed differently). It is designed to provide pertinent information for the following purposes: continuity of care, clinical quality, [address] [address] EMS Patient Care Report Name: EVELIO LOCKE Room #: REG ER [facility]#: [id number] Admission: 07/07/19 Attend Phys: Discharge: Date of : 31 Report #: [id number] and state data reporting. The complete legal record is available to ED staff and administrators of the receiving hospital in [employer]'s Patient Tracker. All data is provided "as is."
[2019-07-07 23:30] VITALS: BP 115/72
== END 2019-07-07 23:30 | disposition home or self-care (01) ==
LOC: ER 21:14
DX: S01.81XA Laceration without foreign body of other part of head, initial encounter (principal); I10 Essential (primary) hypertension; Z79.899 Other long term (current) drug therapy; Z90.89 Acquired absence of other organs; W06.XXXA Fall from bed, initial encounter; Y93.89 Activity, other specified; Y92.098 Other place in other non-institutional residence as the place of occurrence of the external cause; Y99.9 Unspecified external cause status